=== PATIENT | female | born 1955 | race Caucasian/White ===

== ENCOUNTER → 2016-11-30 | Outpatient (CLI) | payer OTHER ==
[~2016-11-30] MED LIST: (NONE)1 CA1 PO; ACIPHEX20 MG PO; ADVAIR 5001 DISK W/D PO; ALAVERT PO; ALBUTEROL17 GM INH; ALBUTEROL2.5 MG/0.5 INH; ALPRAZOLAM PO; AMOXICILLIN875 MG PO; ASMANEX; ASMANEX IH; ASMANEX INH; ATROVENT HFA12.9 GM INH; AUGMENTIN PO; BENICAR HCT 40-1 TAB PO; CADUET 10 MG/101 TAB PO; CALCIUM + D 6001 TA1 PO; CLARITIN10 MG PO; COMBIVENT INH14.7 GM INH; CYMBALTA PO; DETROL LA PO; DITROPAN PO; DITROPAN5 MG PO; DOXYCYCLINE PO; DUONEB 2.5-0.5 M3 ML NEB; EFFEXOR75 MG PO; FENTANYL; FENTANYL PAIN PUMP; FENTANYL PUMP; FLONASE16 GM; FORADIL12 MCG NEB; GELNIQUE30 GM; HUMIBID CS TABL1 TAB PO; HUMIBID DM1 CAP.SR . PO; HUMIBID DM1 TAB.SR . PO; HYZAAR 100-25 T1 TA1; HYZAAR 100-25 T1 TA1 PO; HYZAAR 100-25 T1 TAB PO; HYZAAR 100/25 T1 TAB PO; K-DUR20 ME1 PO; K-DUR20 ME2 PO; LASIX PO; LIDOCAINE 2% PO; LIPITOR PO; MAALOX SUSPENSI30 ML PO; MORPHINE PUMP; MUCINEX DM1 TAB.SR . PO; NEURONTIN PO; NEURONTIN100 MG PO; NEURONTIN600 MG PO; NEXIUM PO; NILSTAT PO; NOLVADEX PO; NORCO 10-325 TA1 TAB; NORCO 10-325 TA1 TAB PO; NORCO 10/325 TA1 TAB PO; NORVASC PO; OMEPRAZOLE20 M2 PO; OMEPRAZOLE40 M1 PO; OPANA ER PO; OPANA PO; OXYCODON-ACETA1 EAC1 PO; PAIN PUMP FENTANYL; PERCOCET 71 UDTAB 7. PO; PERCOCET10 PO; PREDNISONE PO; PRILOSEC PO; PRILOSEC20 MG; PRILOSEC20 MG PO; PRILOSEC40 MG PO; PROAIR HFA8.5 GM IH; PROAIR HFA8.5 GM INH; PROZAC PO; REGLAN PO; REGLAN5 MG PO; REMERON45 MG PO; SENNA S TABLET1 TAB PO; SIMVASTATIN20 MG; SIMVASTATIN20 MG PO; SINGULAIR PO; SPIRIVA18 MCG INH; SYMBICORT 160/4.6 G1 INH; SYMBICORT 160/4.6 GM INH; SYMBICORT 16010.2 GM INH; SYMBICORT 80-10.2 GM INH; SYMBICORT INH; SYMBICORT80 INH; TAMOXIFEN CITRA20 MG; TAMOXIFEN CITRA20 MG PO; TOPAMAX PO; TOPROL XL PO; TOVIAZ4 MG PO; VIBRAMYCIN100 M1 PO; VITAMIN D250000 UNIT PO; VITAMIN D400 UNI2 PO; WELLBUTRIN PO; WELLBUTRIN100 MG PO; ZEGERID40 MG/PKT PO; ZESTORETIC 10/11 TAB PO; ZITHROMAX PO; ZOCOR PO; ZOFRAN ODT4 MG/UDTAB PO; ZOFRAN PO; [UNRECOGNIZED DRUG - OTHER]
== END | disposition home or self-care (01) ==
LOC: CSSDAY 10:00
DX: M81.0 Age-related osteoporosis without current pathological fracture (principal); T50.905S Adverse effect of unspecified drugs, medicaments and biological substances, sequela; Z79.899 Other long term (current) drug therapy
CPT/HCPCS: 36415; 82310; 96372; J0897